=== PATIENT | male | born 1955 ===

== ENCOUNTER 2018-05-25 08:59 | Day surgery (SDC) | payer BC ==
--- NOTE | 2018-05-24 13:05 | HP ---
CC: Sol Pemberton MD; Bartolome Neil MD * ADMITTING HISTORY AND PHYSICAL: DATE OF ADMISSION: 05/25/18 ADMITTING DIAGNOSES: 1. Left hydronephrosis. 2. Calculus, left ureteropelvic junction. 3. Left renal calculi. PLANNED PROCEDURE: Left retrograde and left stent insertion (to be followed in near future by shockwave lithotripsy). HISTORY OF PRESENT ILLNESS: Cristofer Carmichael is a 62-year-old gentleman who has a history of recurrent renal calculi. For the last 2 to 3 months he has had recurrent episodes of painless gross hematuria. This has been progressively getting worse and for the last few weeks he has been having hematuria pretty much on a daily basis. Initial evaluation in my office including an ultrasound had revealed multiple bilateral renal calculi. He then had increasing flank pain and went to the [facility] where a CT scan showed a large obstructing calculus at the left ureteropelvic junction. This was confirmed on a recent plain x-ray and he is now being brought in for urgent left stent insertion to be followed at some point in the near future by lithotripsy. Because of the size and multiplicity of the calculi, he will probably require more than one session of lithotripsy in an effort to try to render him stone free. PAST MEDICAL HISTORY: Significant for: 1. Hypertension. 2. Genital herpes. 3. Renal calculi. PAST SURGICAL HISTORY: Significant for shockwave lithotripsy 25 years ago. MEDICATIONS ON ADMISSION: 1. Nifedipine extended release 30 mg daily. 2. Meclizine 25 mg 1 tablet orally 3 times a day as needed. 3. Maxzide 25/37.5 mg 1 tablet daily. 4. Acyclovir 200 mg 1 capsule orally up to 6 times a day as needed. 5. Multiple supplements. ALLERGIES: SULFA (rash). FAMILY HISTORY: Negative for kidney stones, prostate or bladder problems. SOCIAL HISTORY: He is a former smoker who quit 30 years ago. He has about a 20 - pack-year smoking history prior to that. REVIEW OF SYSTEMS: He is otherwise in excellent health. There is no history of diabetes mellitus or any other major systemic illness. PHYSICAL EXAMINATION GENERAL: Reveals pleasant uncomfortable-appearing middle aged gentleman. VITAL SIGNS: Blood pressure is 140/80, pulse 70 per minute, temperature 97.4, oxygen saturation 98% on room air. LUNGS: Clear bilaterally. CARDIOVASCULAR: Regular rate and rhythm. S1, S2. ABDOMEN: Soft with left flank tenderness. LABORATORY DATA: I reviewed the imaging studies both from [facility] and also the one done in my office and the x-ray at [facility]. ASSESSMENT/PLAN: I had a detailed discussion with Cristofer regarding the procedure of left stent insertion and also detailed discussion regarding the procedure of shockwave lithotripsy. All his questions were answered. The plan is for left stent insertion on 05/25/18 followed by lithotripsy in the near future. [id number]/[facility] #: [id number] MTDD
[~2018-05-25 08:59] MED LIST: Buffered Lidocaine 0.9% SYRIN* 5 ML/SYR SYRINGE INTRADERM ONE; Metoclopramide TAB* 10 MG PO ONE
[2018-05-25] MEDS ORDERED: cefTRIAXone(*) 2 GM ADDV.VIAL IVPB ONE (09:04)
[2018-05-25] MEDS ORDERED: Metoclopramide TAB* 10 MG ONE (09:04)
[2018-05-25] MEDS ORDERED: Lidocaine 2% PF * 5 ML VIAL ONE (09:46)
[2018-05-25] MEDS ORDERED: fentaNYL* 50 MCG/ML 2 ML VIAL (100 MCG VIAL) ONE ×2 (09:46→12:15)
[2018-05-25] MEDS ORDERED: Ketorolac INJ* 30 MG/ML 1 ML VIAL ONE (09:46)
[2018-05-25] MEDS ORDERED: Propofol* 10 MG/ML 20 ML BTL IV PUSH ONE (09:46)
[2018-05-25] MEDS ORDERED: Dexamethasone IV* 4 MG/ML 1 ML (4 MG) ONE (09:46)
[2018-05-25] MEDS ORDERED: Midazolam* 1 MG/ML 5 ML VIAL (5 MG) ONE (09:46)
[2018-05-25] MEDS ORDERED: Ondansetron INJ* 2 MG/ML VIAL ONE (09:46)
[2018-05-25] MEDS ORDERED: Iohexol 300 (CONTRAST) 100 ML SDV IV ONE ×2 (10:14)
[2018-05-25] MEDS ORDERED: Iohexol 180 (CONTRAST) 10 ML SDV IV ONE (10:16)
[2018-05-25] MEDS ORDERED: Naloxone* 0.4 MG/ML 1 ML VIAL IV PRN (11:11)
[2018-05-25] MEDS ORDERED: Ondansetron INJ* 2 MG/ML VIAL IV PRN (11:11)
[2018-05-25] MEDS ORDERED: oxyCODONE/Acetamin 5/325 MG* TAB PO PRN (11:11)
--- NOTE | 2018-05-25 11:45 | RAD ---
INDICATION: Stent insertion COMPARISONS: May 23, 2015 KUB TECHNIQUE: Fluoroscopy was provided for a retrograde pyelogram and stent placement. Total fluoroscopy time is: 10 seconds FINDINGS: Spot images demonstrate contrast within the renal collecting system. A ureteral stent is noted. IMPRESSION: FLUOROSCOPY WAS PROVIDED FOR A RETROGRADE PYELOGRAM AND STENT PLACEMENT CPT II Codes: G9500
[2018-05-25] MEDS ORDERED: Lidocaine 2% JELLY* 6 ML JELLY TOPICAL ONE (11:49)
[2018-05-25] MEDS ORDERED: oxyCODONE/Acetamin 5/325 MG* TAB ONE (12:15)
[2018-05-25] MEDS: fentaNYL* 50 MCG/ML 2 ML VIAL (100 MCG VIAL) IV PRN ×2 (12:17→12:33)
[2018-05-25 13:00] VITALS: BP 135/76
--- NOTE | 2018-05-26 08:22 | OP ---
CC: Dr. Sol Pemberton * DATE OF OPERATION: 05/25/18 - [facility] DATE OF : 59. SURGEON: Bartolome Neil MD. ANESTHESIOLOGIST: Dr. Lynn. ANESTHESIA: Intravenous sedation. PRE-OP DIAGNOSES: 1. Obstructing calculus, left ureteropelvic junction. 2. Left renal calculi. POST-OP DIAGNOSES: 1. Obstructing calculus, left ureteropelvic junction. 2. Left renal calculi. 3. Multiple bladder calculi. OPERATIVE PROCEDURE: 1. Cystoscopy, left retrograde pyelogram, left ureteral calculus manipulation, and left stent insertion. 2. Fragmentation and removal of bladder calculi. COMPLICATIONS: None. STENT USED: 7-[place] stent left ureter. OPERATIVE FINDINGS: 1. Normal appearing urethra. 2. Markedly enlarged obstructing prostate. 3. Multiple bladder calculi. 4. Left hydronephrosis with obstructing calculus at left ureteropelvic junction. POSTOPERATIVE CONDITION: Stable. INDICATIONS: Cristofer Carmichael is a 62-year-old gentleman who was evaluated because of left flank pain. He was noted to have an obstructing calculus at the left ureteropelvic junction with additional bilateral renal calculi. He has been brought in for an urgent left stent insertion to be followed at some point in the future by lithotripsy. Because of the large stone burden, I have explained to him that he may require multiple procedures to completely fragment the calculi. DESCRIPTION OF PROCEDURE: After induction of intravenous sedation, the patient was placed in dorsal lithotomy position. Sequential compression devices were in place and functioning. Initial evaluation revealed a normal appearing urethra with a significantly large obstructing vascular prostate. The bladder was examined. Multiple small bladder calculi were noted. These were fragmented and the residual fragments were then irrigated out. There was no evidence of any suspicious bladder lesions noted, although the bladder was moderately trabeculated secondary to prostate enlargement. Left retrograde pyelogram revealed filling defect in the area of the renal pelvis consistent with the calculus with fullness of the collecting system. An open-ended catheter was advanced and the calculus was manipulated proximally. A 7-[place] stent was then introduced and positioned under fluoroscopy with good proximal and distal positioning obtained. A 24 [place] Coude catheter was introduced without difficulty and connected to a drainage bag. The patient tolerated the procedure satisfactorily and was transferred back to the recovery area in stable condition. [id number]/[facility] #: [id number] JORGE ALBERTO
== END 2018-05-25 13:57 | disposition home or self-care (01) ==
LOC: OR 08:59
PROVIDERS: ATTEND Urology
DX: N13.2 Hydronephrosis with renal and ureteral calculous obstruction (principal); R31.0 Gross hematuria; N21.0 Calculus in bladder; N40.1 Benign prostatic hyperplasia with lower urinary tract symptoms; N13.8 Other obstructive and reflux uropathy; I10 Essential (primary) hypertension; Z87.442 Personal history of urinary calculi
CPT/HCPCS: 74420; 82365; 88300; A9270-GY; C1876; J0696; J1100; J1885; J2250; J2405; J2704; J3010

== ENCOUNTER 2018-06-06 11:20 | Day surgery (SDC) | payer BC ==
[~2018-06-06 11:20] MED LIST changes: -Metoclopramide TAB* 10 MG PO ONE
[2018-06-06] MEDS ORDERED: cefTRIAXone(*) 2 GM ADDV.VIAL IVPB ONE (11:31)
[2018-06-06] MEDS ORDERED: HYDROmorphone INJ* 0.5 MG/0.5 ML SYRINGE ONE (11:31)
[2018-06-06] MEDS ORDERED: Ketorolac INJ* 30 MG/ML 1 ML VIAL ONE (13:29)
[2018-06-06] MEDS ORDERED: Midazolam* 1 MG/ML 5 ML VIAL (5 MG) ONE (13:29)
[2018-06-06] MEDS ORDERED: Propofol* 10 MG/ML 20 ML BTL IV PUSH ONE (13:29)
[2018-06-06] MEDS ORDERED: Dexamethasone IV* 4 MG/ML 1 ML (4 MG) ONE (13:29)
[2018-06-06] MEDS ORDERED: Ondansetron INJ* 2 MG/ML VIAL ONE (13:29)
[2018-06-06] MEDS ORDERED: fentaNYL* 50 MCG/ML 2 ML VIAL (100 MCG VIAL) ONE ×2 (13:29→15:18)
[2018-06-06] MEDS ORDERED: Lidocaine 2% PF * 5 ML VIAL ONE (13:29)
[2018-06-06] MEDS ORDERED: Ondansetron INJ* 2 MG/ML VIAL IV PRN (14:49)
[2018-06-06] MEDS ORDERED: Naloxone* 0.4 MG/ML 1 ML VIAL IV PRN (14:49)
[2018-06-06] MEDS ORDERED: oxyCODONE/Acetamin 5/325 MG* TAB PO PRN (14:49)
[2018-06-06] MEDS ORDERED: fentaNYL* 50 MCG/ML 2 ML VIAL (100 MCG VIAL) IV PRN (14:49)
[2018-06-06] MEDS ORDERED: EPHEDrine (Pressors)* 50 MG/ML VIAL ONE (14:51)
[2018-06-06 16:22] VITALS: BP 168/99
--- NOTE | 2018-06-07 04:48 | OP ---
CC: Dr. Sol Pemberton * DATE OF OPERATION: 06/06/18 - [facility] DATE OF : 59 SURGEON: Bartolome Neil MD ANESTHESIOLOGIST: Dr. Lynn. ANESTHESIA: General. PRE-OPERATIVE DIAGNOSIS: Left renal calculi. POST-OPERATIVE DIAGNOSIS: Left renal calculi. OPERATIVE PROCEDURE: Shockwave lithotripsy of left renal calculi. COMPLICATIONS: None. POSTOPERATIVE CONDITION: Stable. INDICATIONS: Cristofer Carmichael is a 62-year-old gentleman who has undergone urgent stent insertion for an obstructing calculus at the left ureteropelvic junction. In addition, he had other renal calculi also and is now being brought in for shockwave lithotripsy of multiple left renal calculi. Because of the size and number of the calculi, I have explained to him that he may require more than one session of lithotripsy to render him stone free. I have also discussed the procedure in detail including possible risks of bleeding infection, possible trauma to the kidney and incomplete fragmentation. DESCRIPTION OF PROCEDURE: After induction of general anesthesia, the patient was placed on the lithotripsy table in supine position. There was a calculus just superior to the proximal coil of the stent and two additional calculi just inferior to the proximal coil of the stent. Attention was directed to the calculus in the superior location first, shockwave lithotripsy was commenced at a rate of the 90 shocks per minute. After the initial 300 shocks, there was a pause in lithotripsy for several minutes in an effort to minimize any potential trauma to the kidney. A total of 1200 shocks were administered to the superior calculus and good fragmentation was observed. Next, the two calculi in the lower part were localized using fluoroscopy and once again 1200 shocks were administered at a rate of 90 shocks per minute. In total 2400 shocks were administered throughout the procedure. The patient tolerated the procedure satisfactorily and was transferred back to recovery area in stable condition. [id number]/[facility] #: [id number] [facility] CENTERJanna
== END 2018-06-06 16:24 | disposition home or self-care (01) ==
LOC: OR 11:20
PROVIDERS: ATTEND Urology
DX: N20.0 Calculus of kidney (principal); I10 Essential (primary) hypertension
CPT/HCPCS: 74018; J0696; J1100; J1170; J1885; J2250; J2405; J2704; J3010